=== PATIENT | female | born 1955 | race Caucasian/White ===

== ENCOUNTER 2016-10-07 04:44 | Emergency (ER) | payer OTHER ==
[2016-10-07 05:00] VITALS: BP 129/93; PULSE 79; TEMP 97.8; BMI 35.6
[2016-10-07] MEDS ORDERED: OXYCODONE/APAP 5/325MG COMBO TABLET PO ONE (05:05)
[2016-10-07] MEDS ORDERED: ALBUTEROL SO4 2.5/IPRATROPIUM 0.5 INH SOL 3 ML VIAL.NEB. NEB ONE ×2 (05:05→05:09)
[2016-10-07] MEDS ORDERED: methylPREDNISolone NA SUCC 125 MG/2 ML VIAL IM ONE (05:07)
[2016-10-07] MEDS ORDERED: OXYCODONE/APAP 5/325MG COMBO TABLET ONE (05:09)
[2016-10-07] MEDS ORDERED: methylPREDNISolone NA SUCC 125 MG/2 ML VIAL ONE (05:09)
--- NOTE | 2016-10-07 05:10 | PDOC ---
History of Present Illness - General Chief Complaint: Respiratory Stated Complaint: COUGH History Source: Patient Exam Limitations: No Limitations - History of Present Illness Initial Comments: 10/07/16 05:[address] scan of chest for aneurysm earlier today, then went to the doctor and got a z pack for her cough. Tonight she had a coughing jag that just would not stop and she ended up here in the ED. Timing/Duration: 24 hours Severity: mild Associated Symptoms: denies: denies symptoms Past History - Past Medical History Allergies/Adverse Reactions: Allergies Allergy/AdvReac Type Severity Reaction Status Date / Time No Known Allergies Allergy Verified 12/26/12 01:47 Home Medications: Ambulatory Orders Amlodipine Besylate [Norvasc] 5 mg PO DAILY 12/23/12 Aspirin Coated [Ecotrin -] 81 mg PO DAILY 10/07/16 Azithromycin [Zithromax -] 250 mg PO DAILY 10/07/16 Cholecalciferol (Vitamin D3) [Vitamin D3] 2,000 unit PO BID 10/07/16 Hydrochlorothiazide 25 mg PO DAILY 10/07/16 Naproxen [Naprosyn -] 500 mg PO PRN PRN 10/07/16 [place]-3/Dha/Epa/Fish Oil [[place] 3 500 Softgel] 1,000 mg PO HS 10/07/16 Oxycodone HCl/Acetaminophen [Percocet 10-325 mg Tablet] 1 each PO TID 10/07/16 Sitagliptin Phos/Metformin HCl [Janumet Xr 50-500 mg Tablet] 1 each PO DAILY 01/18 Vitamin E Acetate [Vitamin E] 400 unit PO DAILY 10/07/16 Diabetes: Yes HTN: Yes HIV: Yes Suicide Attempt (Hx): No Other medical history: ANEURYSM - Immunization History Td Vaccination: Yes TDAP Vaccination: Yes Immunization Up to Date: Yes - Psycho/Social/Smoking Cessation Hx Anxiety: No Suicidal Ideation: No Smoking Status: Yes Smoking History: Current every day smoker Years of Tobacco Use: 0 Have you smoked in the past 12 months: Yes Number of Cigarettes Smoked Daily: 35 Cigars Per Day: 0 Information on smoking cessation initiated: Yes 'Breaking Loose' booklet given: 10/07/16 Drug/Substance Use Hx: No Substance Use Type: None Review of Systems - Review of Systems Able to Perform ROS?: Yes Is the patient limited Togolese proficient: No Constitutional: Yes: Symptoms Reported, See HPI HEENTM: No: Symptoms Reported Respiratory: Yes: See HPI Cardiac (ROS): No: Symptoms Reported ABD/GI: No: Symptoms Reported : No: Symptoms Reported Musculoskeletal: No: Symptoms Reported Integumentary: No: Symptoms Reported Neurological: No: Symptoms reported Endocrine: No: Symptoms Reported Hematologic/Lymphatic: No: Symptoms Reported All Other Systems: Reviewed and Negative *Physical Exam - Vital Signs Last Vital Signs Temp Pulse Resp BP Pulse Ox 97.8 F 79 18 129/93 96 10/07/16 04:57 10/07/16 04:57 10/07/16 04:57 10/07/16 04:57 10/07/16 04:57 - Physical Exam Comments: 10/07/16 05:11 high pitched barky cough General Appearance: No: Apparent Distress HEENT: positive: EOMI, URSZULA, Normal ENT Inspection Neck: positive: Supple. negative: Tender Respiratory/Chest: positive: Lungs Clear, Normal Breath Sounds. negative: Chest Tender Cardiovascular: positive: Regular Rhythm, Regular Rate Gastrointestinal/Abdominal: positive: Normal Bowel Sounds, Flat, Soft. negative : Organomegaly, Pulsatile Mass Lymphatic: negative: Adenopathy, Tenderness Musculoskeletal: positive: Normal Inspection Extremity: positive: Normal Inspection Integumentary: positive: Normal Color, Dry, Warm Neurologic: positive: environmental solutions engineer II-XII NML intact, Fully Oriented, Alert, Normal Mood/ Affect Medical Decision Making - Medical Decision Making 10/07/16 05:12 will treat with steroid, albuterol and cough supressant *DC/Admit/Observation/Transfer Diagnosis at time of Disposition: Laryngotracheitis - Discharge Dispostion Disposition: HOME Condition at time of disposition: Good Admit: No - Patient Instructions Additional Instructions: Humidified air everywhere you are, especially in bed. Over hydrate a little too. Return if any problems. Continue the medicine you got earlier from your doctor. Get the prescriptions later today and start them tonight when you go to bed. Aurelio- Dr. Mejia Dawn
== END 2016-10-07 05:38 | disposition home or self-care (01) ==
LOC: FER 04:44
PROC: 3E0F7GC Introduction of Other Therapeutic Substance into Respiratory Tract, Via Natural or Artificial Opening (ICD-10-PCS; principal; 2016-10-07)
PROC: 3E033GC Introduction of Other Therapeutic Substance into Peripheral Vein, Percutaneous Approach (ICD-10-PCS; 2016-10-07)
DX: J04.2 Acute laryngotracheitis (principal); E11.9 Type 2 diabetes mellitus without complications; I10 Essential (primary) hypertension; Z21 Asymptomatic human immunodeficiency virus [HIV] infection status; I71.2 Thoracic aortic aneurysm, without rupture; F17.210 Nicotine dependence, cigarettes, uncomplicated
CPT/HCPCS: 99281-25

== ENCOUNTER 2016-12-02 05:03 | Inpatient (IN) | payer OTHER ==
[2016-11-25 11:35] VITALS: BMI 35.4
[2016-12-02] MEDS ORDERED: HEPARIN NA (PORCINE) 5,000 UNITS/ML 1ML VIAL ONE ×3 (07:32→10:11)
[2016-12-02] MEDS ORDERED: ceFAZolin SODIUM 1 GM VIAL ONE ×2 (07:58→08:38)
[2016-12-02] MEDS ORDERED: PROPOFOL 20 ML ONE ×3 (08:03→11:14)
--- NOTE | 2016-12-02 08:16 | HP ---
History & Physical Update - History History: No Change - Physical Physical: No Change - Assessment Assessment: No Change - Plan Plan: No Change (This is the first time I am meeting the patient. Introduced myself and informed her that I will be assisting Dr. Willett during the procedure.)
[2016-12-02] MEDS ORDERED: MIDAZOLAM HCL 2 MG/2 ML SINGLE DOSE VIAL ONE ×4 (08:33→11:11)
[2016-12-02] MEDS ORDERED: ceFAZolin SODIUM 1 GM VIAL IVPB ONE (08:40)
[2016-12-02] MEDS ORDERED: LIDOCAINE HCL 2% (20ML MULTI-DOSE VIAL) NR ONE ×2 (08:42→08:48)
[2016-12-02] MEDS ORDERED: CEFAZOLIN 1 GM in DEXTROSE 5%-WATER - 50 ML IVPB ONE (09:00)
[2016-12-02] MEDS ORDERED: METOPROLOL TARTRATE 5 MG/5 ML VIAL ONE (09:35)
[2016-12-02] MEDS ORDERED: SODIUM CHLORIDE 0.9% P/F 10 ML VIAL IJ ONE (10:11)
[2016-12-02] MEDS ORDERED: hydrALAZINE HCL 20 MG/ML VIAL ONE (10:26)
[2016-12-02] MEDS ORDERED: OXYCODONE/APAP 5/325MG COMBO TABLET PO PRN (12:14)
--- NOTE | 2016-12-02 12:18 | OP ---
Operative Note - Note: Operative Date: 12/02/16 Pre-Operative Diagnosis: Abdominal aortic aneurysm Operation: Endovascular repair of abdominal aortic aneurysm with unibody graft and 2 docking limbs. Findings: 6.5 cm infrarenal AAA Implants: Endologix AFX stent graft Post-Operative Diagnosis: Same as Pre-op Surgeon: Dorian Willett Manager Credit Risk: Bobby Gomes Anesthesiologist/INSPECTOR BALANCE BRIDGE: Terri Tolbert Anesthesia: Fractional Estimated Blood Loss (mls): 200 Operative Report Dictated: Yes
[2016-12-02] MEDS ORDERED: ONDANSETRON 4 MG/2 ML VIAL IVPUSH PRN (12:22)
--- NOTE | 2016-12-02 12:41 | PROC ---
Procedure Note Procedure: Anesthesiology Arterial Line Insertion Indication: Hemodynamic monitoring intra-op Procedure: In OR, left radial pulse palpated, left wrist prepped with chlorhexidine, sterile gloves used. #20G Arrow arterial catheter inserted x1 via Seldinger technique. No resistance. Good waveform upon transduction of line. Dressing applied to secure catheter. No apparent complications.
--- NOTE | 2016-12-02 12:48 | HP ---
Admitting History and Physical - Admission History of Present Illness: 61 year old female found to have a 6 cm AAA on recent abdominal CT scan. No abdominal pain. No family history of aneurysm disease. History Source: Patient - Past Medical History Cardiovascular: Yes: HTN Endocrine: Yes: Diabetes Mellitus - Smoking History Smoking history: Current every day smoker Have you smoked in the past 12 months: Yes Aproximately how many cigarettes per day: 35 - Alcohol/Substance Use Hx Alcohol Use: Yes (RARE) Home Medications - Allergies Allergies/Adverse Reactions: Allergies Allergy/AdvReac Type Severity Reaction Status Date / Time No Known Drug Allergies Allergy Verified 12/02/16 08:07 - Home Medications Home Medications: Ambulatory Orders Amlodipine Besylate [Norvasc] 5 mg PO DAILY 12/23/12 Aspirin Coated [Ecotrin -] 81 mg PO ASDIR 10/07/16 Cholecalciferol (Vitamin D3) [Vitamin D3] 2,000 unit PO BID 10/07/16 Hydrochlorothiazide 25 mg PO ASDIR 10/07/16 Naproxen [Naprosyn -] 500 mg PO PRN PRN 10/07/16 [place]-3/Dha/Epa/Fish Oil [[place] 3 500 Softgel] 1,000 mg PO HS 10/07/16 Oxycodone HCl/Acetaminophen [Percocet 5-325 mg Tablet] 1 - 2 tab PO Q4H #20 tablet MDD 5 10/07/16 Sitagliptin Phos/Metformin HCl [Janumet Xr 50-500 mg Tablet] 1 each PO DAILY 01/18 Vitamin E Acetate [Vitamin E] 400 unit PO DAILY 10/07/16 Review of Systems - Review of Systems Musculoskeletal: reports: Back Pain Physical Examination Vital Signs: Vital Signs Temperature 98.0 F 12/02/16 08:20 Pulse Rate 78 12/02/16 08:20 Respiratory Rate 20 12/02/16 08:20 Blood Pressure 140/80 12/02/16 08:20 O2 Sat by Pulse Oximetry (%) 96 12/02/16 07:56 Constitutional: Yes: Obese Eyes: Yes: EOM Intact HENT: Yes: Atraumatic Neck: Yes: Supple Cardiovascular: Yes: Regular Rate and Rhythm Respiratory: Yes: Regular Gastrointestinal: Yes: Soft, Abdomen, Obese Peripheral Pulses WNL: Yes Problem List - Problems (1) Abdominal aortic aneurysm (AAA) greater than 39 mm in diameter Assessment/Plan: Infrarenal AAA > 5 cm. Plan endovascular repair with stent graft. Code(s): I71.4 - ABDOMINAL AORTIC ANEURYSM, WITHOUT RUPTURE (2) Diabetes mellitus, controlled Code(s): E11.9 - TYPE 2 DIABETES MELLITUS WITHOUT COMPLICATIONS Qualifiers: Diabetes mellitus type: type 2 Diabetes mellitus complication status: without complication
[2016-12-02] MEDS ORDERED: oxyCODONE HCL 5 MG TABLET PO PRN (12:53)
[2016-12-02] MEDS ORDERED: ACETAMINOPHEN 325 MG TABLET (FP) PO PRN (12:53)
--- NOTE | 2016-12-02 12:57 | SURG ---
Surgery Estate Planning Attorney Note Estate Planning Attorney: Bobby Gomes PA-C Date of Service: 12/02/16 Diagnosis: Abdominal aortic aneurysm Procedure: Endovascular repair of abdominal aortic aneurysm with unibody graft and 2 docking limbs. Findings: 6.5 cm infrarenal AAA Implants: Endologix AFX stent graft I was present for the entirety of the operative procedure. For further detail, please refer to operative report. Visit type - Case Type Case Type: Scheduled Admission - New patient This patient is new to me today: Yes Date on this admission: 12/02/16
[2016-12-02] MEDS ORDERED: ONDANSETRON 4 MG/2 ML VIAL ONE (13:00)
[2016-12-02] MEDS: DEXTROSE 5%-0.45% SALINE 1,000 ML IV SCH ×2 (14:00→14:30)
--- NOTE | 2016-12-02 14:35 | CONSULT ---
Consultation: HISTORY OF PRESENT ILLNESS: Patient is a 61 year old female w/ PMH of HTN, HLD, DM, RISHI, & 1.5ppd smoker who was found to have a 6 cm infrarenal AAA on recent abdominal CT scan. Patient has no family history of aneurysm disease. AAA was found incidentally 3 years ago and has been monitored by Dr Willett. Patient states it has been stable until recently, when she was informed it had grown larger. Surgery was planned & today Dr Willett performed an endovascular repair with unibody stent graft and 2 docking limbs. Patient has some mild nausea & headache post-op , but otherwise states she feels normal. REVIEW OF SYSTEMS: CONSTITUTIONAL: Absent: fever, chills, diaphoresis, generalized weakness, malaise, loss of appetite, weight change HEENT: Absent: rhinorrhea, nasal congestion, throat pain, throat swelling, difficulty swallowing, mouth swelling, ear pain, eye pain, visual changes CARDIOVASCULAR: Absent: chest pain, syncope, palpitations, irregular heart rate, lightheadedness , peripheral edema RESPIRATORY: Absent: cough, shortness of breath, dyspnea with exertion, orthopnea, wheezing, stridor, hemoptysis GASTROINTESTINAL: (+)nausea Absent: abdominal pain, abdominal distension, vomiting, diarrhea, constipation, melena, hematochezia GENITOURINARY: Absent: dysuria, frequency, urgency, hesitancy, hematuria, flank pain, genital pain MUSCULOSKELETAL: Absent: myalgia, arthralgia, joint swelling, back pain, neck pain SKIN: Absent: rash, itching, pallor HEMATOLOGIC/IMMUNOLOGIC: Absent: easy bleeding, easy bruising, lymphadenopathy, frequent infections ENDOCRINE: Absent: unexplained weight gain, unexplained weight loss, heat intolerance, cold intolerance NEUROLOGIC: (+)headache, Absent: focal weakness or paresthesias, dizziness, unsteady gait, seizure, mental status changes, bladder or bowel incontinence PSYCHIATRIC: Absent: anxiety, depression, suicidal or homicidal ideation, hallucinations. PHYSICAL EXAMINATION Vital Signs - 24 hr 12/02/16 12/02/16 07:56 08:20 Temperature 98.0 F Pulse Rate 78 Respiratory 20 Rate Blood Pressure 140/80 O2 Sat by Pulse 96 Oximetry (%) GENERAL: Awake, alert, and fully oriented, in no acute distress. On NC O2 HEENT:Atraumatic, EOMI, PERRLA, Dry membranes, no lymphadenopathy noted LUNGS: Breath sounds equal, clear to auscultation bilaterally. No wheezes, and no crackles. No accessory muscle use. HEART: Regular rate and rhythm, normal S1 and S2 without murmur, rub or gallop. ABDOMEN: Soft, nontender, not distended, normoactive bowel sounds EXTREMITIES: 2+ pulses, warm, well-perfused. No calf tenderness. Trace peripheral edema bilateral LE NEUROLOGICAL: Cranial nerves II-XII intact. Normal speech. Gait not observed post-op PSYCHIATRIC: Cooperative. Good eye contact. Appropriate mood and affect. SKIN: Warm, dry, normal turgor, no rashes or lesions noted. Laboratory Results - last 24 hr 12/02/16 12/02/16 07:40 08:00 POC Glucometer 145 Blood Type A POSITIVE Antibody Screen Negative Crossmatch IS Only See Detail Active Medications Generic Name Dose Route Start Last Admin Trade Name Freq PRN Reason Stop Dose Admin Acetaminophen 650 mg 12/02/16 12:53 Tylenol - PO 12/05/16 12:52 Q4H PRN PAIN 6-10 Amlodipine Besylate 5 mg 12/03/16 10:00 Norvasc - PO DAILY [facility] Aspirin 81 mg 12/02/16 12:15 Ecotrin - PO ASDIR [facility] Cholecalciferol 2,000 unit 12/02/16 22:00 Vitamin D3 - PO BID [facility] Fentanyl 50 mcg 12/02/16 12:22 12/02/16 12:48 Sublimaze Injection - IVPUSH 12/05/16 12:23 25 mcg [id number] PRN Administration PAIN Heparin Sodium (Porcine) 5,000 unit 12/02/16 22:00 Heparin - SQ BID [facility] Hydrochlorothiazide 25 mg 12/02/16 12:15 Hctz - PO ASDIR [facility] Hydromorphone HCl 1 mg 12/02/16 12:13 Dilaudid Injection - IVPB Q3H PRN PAIN LEVEL 1-5 Cefazolin Sodium 1 gm/ 50 mls @ 100 mls/hr 12/03/16 09:00 Dextrose IVPB 12/03/16 09:29 Q8H-IV ONE Ondansetron HCl 4 mg 12/02/16 12:22 12/02/16 13:07 Zofran Injection IVPUSH 12/02/16 18:23 4 mg Q6H PRN Administration NAUSEA AND/OR VOMITING Oxycodone HCl 10 mg 12/02/16 12:53 Roxicodone - PO Q4H PRN PAIN 6-10 ASSESSMENT/PLAN: 61 year old female w/ PMH of HTN, HLD, DM, RISHI, & 1.5ppd smoker who was found to have a 6 cm infrarenal AAA on recent abdominal CT scan. S/P endovascular graft by Dr Willett today. #Abdominal Aortic Aneurysm, infrarenal -s/p endovascular repair with unibody stent graft -Dialudid pain management -Clear liquid diet, may advance tomorrow AM -Zofran for nausea -2gm Ancef given in OR, will give another 1gram tomorrow morning -IVF D5-1/2NS @60cc/hr, as per surgery #Hypertension -continue Norvasc 5mg, HCTZ 25mg -continue ASA 81mg #Diabetes Mellitus -ISS -FSBG ACHS Prophylaxis/FEN -Heparin -Clear liquid diet, IVF D5-1/2NS @60cc/hr, Vit D3 Dispo: We will continue to follow the patient. Thank you for this consultative opportunity. Visit type - Emergency Visit Emergency Visit: Yes ED Registration Date: 12/02/16 Care time: The patient presented to the Emergency Department on the above date and was hospitalized for further evaluation of their emergent condition. - New Patient This patient is new to me today: Yes Date on this admission: 12/02/16 - Critical Care Critical Care patient: Yes Total Critical Care Time (in minutes): 50 Critical Care Statement: The care of this patient involved high complexity decision making to prevent further life threatening deterioration of the patient 's condition and/or to evalute & treat vital organ system(s) failure or risk of failure.
[2016-12-02] MEDS: HYDROmorphone HCL CARPU-JECT 1 MG/1 ML DISP.SYRIN IVPB PRN ×2 (15:16→20:26)
[2016-12-02] MEDS ORDERED: HYDROmorphone HCL CARPU-JECT 1 MG/1 ML DISP.SYRIN IVPUSH ONE (17:00)
[2016-12-02] MEDS: INSULIN SLIDING SCALE (NOVOLOG) 1 VIAL SQ SCH (17:22)
[2016-12-02] MEDS ORDERED: ONDANSETRON 4 MG/2 ML VIAL IVPUSH ONE (17:34)
[2016-12-02 18:38] LABS: MCH 29.5 pg (25.7-33.7); MCHC 33.4 g/dl (32.0-36.0); MEAN CELL VOLUME 88.2 fl (80-96); PLATELET COUNT 183 K/MM3 (134-434); WHITE BLOOD COUNT 14.7 K/mm3 (4.0-10.0)
[2016-12-02 19:16] LABS: CALCIUM 8.7 mg/dL (8.5-10.1)
[2016-12-02] MEDS ORDERED: METOCLOPRAMIDE HCL INJECTION 10 MG/2 ML VIAL IVPUSH ONE (20:13)
--- NOTE | 2016-12-02 20:14 | CONSULT ---
Consult Consult Specialty:: Pulm/CC - History of Present Illness History of Present Illness: Pt is a 61yr old woman with PMhx of RISHI (current smoker) HTN, HLD, DM and AAA ( infrarenal), recently enlarged to 6cm. Pt now s/p endovascular repair with unibody graft (bilateral femoral incisions, ebl 200mL). Upon assessment pt denies chest pain/headache/sob and endorses nausea with dry heaving and 12/10 abdominal pain. 154/84, 98%, 79hr (sinus on tele). - History Source History Provided By: Patient, Medical Record Limitations to Obtaining History: Clinical Condition - Past Medical History Cardio/Vascular: Yes: HTN Endocrine: Yes: Diabetes Mellitus - Alcohol/Substance Use Hx Alcohol Use: Yes (RARE) - Smoking History Smoking history: Current every day smoker Have you smoked in the past 12 months: Yes Aproximately how many cigarettes per day: 35 Home Medications - Allergies Allergies/Adverse Reactions: Allergies Allergy/AdvReac Type Severity Reaction Status Date / Time No Known Drug Allergies Allergy Verified 12/02/16 08:07 - Home Medications Home Medications: Ambulatory Orders Amlodipine Besylate [Norvasc] 5 mg PO DAILY 12/23/12 Aspirin Coated [Ecotrin -] 81 mg PO ASDIR 10/07/16 Cholecalciferol (Vitamin D3) [Vitamin D3] 2,000 unit PO BID 10/07/16 Hydrochlorothiazide 25 mg PO ASDIR 10/07/16 Naproxen [Naprosyn -] 500 mg PO PRN PRN 10/07/16 [place]-3/Dha/Epa/Fish Oil [[place] 3 500 Softgel] 1,000 mg PO HS 10/07/16 Oxycodone HCl/Acetaminophen [Percocet 5-325 mg Tablet] 1 - 2 tab PO Q4H #20 tablet MDD 5 10/07/16 Sitagliptin Phos/Metformin HCl [Janumet Xr 50-500 mg Tablet] 1 each PO DAILY 01/18 Vitamin E Acetate [Vitamin E] 400 unit PO DAILY 10/07/16 Review of Systems Unable to obtain ROS, reason: elda due to pain/nausea Physical Exam Vital Signs: Vital Signs Period Temp Pulse Resp BP Sys/Taylor Pulse Ox Last 24 Hr 97.5 F-98.6 F 60-78 12-20 17-144/63-83 95-100 Intake & Output 11/29/16 11/30/16 12/01/16 12/02/16 23:59 23:59 23:59 23:59 Intake Total 2019 Output Total 1950 Balance 70 Constitutional: Yes: Well Nourished, Mild Distress Eyes: Yes: WNL, Other (pupillary response consistent with opioids for pain) HENT: Yes: WNL Neck: Yes: WNL Cardiovascular: Yes: S1, S2, Other (sinus on tele) Respiratory: Yes: On Nasal O2, Other (no adventitious breath sounds appreciated) . No: Rhonchi, SOB Gastrointestinal: Yes: Hypoactive Bowel Sounds, Tenderness, Other (nausea) ...Rectal Exam: Yes: Deferred Renal/: Yes: [place] Present (yellow output) Extremities: Yes: WNL Edema: Yes Edema: LLE: Trace, RLE: Trace Peripheral Pulses WNL: Yes (+1 bilateral pedal pulses) Integumentary: Yes: Other (bilateral femoral incision) Wound/Incision: Yes: Open to air, Reddened Neurological: Yes: Alert, Oriented. No: Facial Droop Labs: Abnormal Lab Results 12/02/16 12/02/16 12/02/16 07:40 18:00 18:00 WBC 14.7 H D Random Glucose 121 H Crossmatch IS Only See Detail Assessment/Plan Pt is a 61yr old woman with PMhx of RISHI (current smoker) HTN, HLD, DM and AAA ( infrarenal), recently enlarged to 6cm. Pt now s/p endovascular repair with unibody graft. Pulm: -O2 support prn for sat >94% -Incentive spirometer -Nebulizers prn -Smoking cessation counseling -Nicotine patch prn ID: -f/u cultures -Antibiotics given in OR, will continue overnight, continue as clinically warranted Surgery -Dr Willett following -IVF/wound/surgical care per surgery Renal -Replete electrolytes prn -I/Os Cardio -BP control Neuro -Pain management Endo -BGM -Glycemic control Prophylactic -OOB as able -DVT -Antiemetics prn
[2016-12-02 20:54] LABS: MAGNESIUM 2.2 mg/dL (1.8-2.4); PHOSPHOROUS 4.1 mg/dL (2.5-4.9)
[2016-12-02] MEDS: CHOLECALCIFEROL (VITAMIN D3) 1,000 UNIT TABLET (FP) PO SCH (21:17)
[2016-12-02] MEDS: HEPARIN NA (PORCINE) 5,000 UNITS/ML 1ML VIAL SQ SCH (21:17)
[2016-12-02] MEDS ORDERED: CEFAZOLIN (PRE-DOCKED) 50 ML IVPB ONE (21:19)
[2016-12-02] MEDS ORDERED: PATIENT'S OWN MEDICATION (NON-FORMULARY) (Omega-3/Dha/Epa/Fish Oil [Omega 3 500 Softgel] 1 PO SCH (22:00)
[2016-12-03] MEDS: HYDROmorphone HCL CARPU-JECT 1 MG/1 ML DISP.SYRIN IVPB PRN ×5 (00:10→23:54)
[2016-12-03 05:35] LABS: MCH 29.6 pg (25.7-33.7); MCHC 33.8 g/dl (32.0-36.0); MEAN CELL VOLUME 87.5 fl (80-96); PLATELET COUNT 185 K/MM3 (134-434); RDW 13.8 % (11.6-15.6); WHITE BLOOD COUNT 15.5 K/mm3 (4.0-10.0)
[2016-12-03] MEDS ORDERED: CEFAZOLIN (PRE-DOCKED) 50 ML IVPB ONE ×2 (06:00→09:00)
[2016-12-03] MEDS: INSULIN SLIDING SCALE (NOVOLOG) 1 VIAL SQ SCH ×3 (06:10→15:42)
[2016-12-03 06:22] LABS: ALBUMIN 3.6 g/dl (3.4-5.0); BILIRUBIN,TOTAL 0.5 mg/dL (0.2-1.0); CALCIUM 8.4 mg/dL (8.5-10.1); CREATININE 1.1 mg/dL (0.55-1.02); MAGNESIUM 2.1 mg/dL (1.8-2.4); PHOSPHOROUS 4.2 mg/dL (2.5-4.9); TOT PROT 6.6 g/dl (6.4-8.2)
[2016-12-03 06:29] LABS: TROPONIN I < 0.02 ng/ml (0.00-0.05)
--- NOTE | 2016-12-03 08:15 | PN ---
Progress Note (short form) - Note Progress Note: POD 1 C/o back pain VSS Abd soft Groins dry, no swelling Feet warm, pulses intact Labs WNL. WBC 15 K Stable, s/p EVAR OOB Regular diet Problem List - Problems (1) Abdominal aortic aneurysm (AAA) greater than 39 mm in diameter Code(s): I71.4 - ABDOMINAL AORTIC ANEURYSM, WITHOUT RUPTURE (2) Diabetes mellitus, controlled Code(s): E11.9 - TYPE 2 DIABETES MELLITUS WITHOUT COMPLICATIONS Qualifiers: Diabetes mellitus type: type 2 Diabetes mellitus complication status: without complication
[2016-12-03] MEDS ORDERED: PT OWN MED DRAWER 7, Y5N ONE (09:29)
[2016-12-03] MEDS: HEPARIN NA (PORCINE) 5,000 UNITS/ML 1ML VIAL SQ SCH ×2 (09:31→21:13)
[2016-12-03] MEDS: CHOLECALCIFEROL (VITAMIN D3) 1,000 UNIT TABLET (FP) PO SCH ×2 (09:38→21:16)
--- NOTE | 2016-12-03 09:38 | PN ---
Physical Exam: SUBJECTIVE: Patient seen and examined at bedside in ICU. Afebrile overnight with stable BP & HR. States she has some mild diffuse abdominal pain, but improved overnight. Mild nausea improved overnight. Seen by Dr Willett this morning and is doing well post-op. OBJECTIVE: Vital Signs Period Temp Pulse Resp BP Sys/Taylor Pulse Ox Last 24 Hr 97.5 F-98.9 F 60-82 12-20 17-169/63-91 95-100 GENERAL: Awake, alert, and fully oriented, in no acute distress. On NC O2 HEENT:Atraumatic, EOMI, PERRLA, moist membranes, no lymphadenopathy noted LUNGS: Breath sounds equal, clear to auscultation bilaterally. No wheezes, and no crackles. No accessory muscle use. HEART: Regular rate and rhythm, normal S1 and S2 without murmur, rub or gallop. ABDOMEN: Soft, nontender, not distended, normoactive bowel sounds EXTREMITIES: 2+ pulses, warm, well-perfused. No calf tenderness. Trace peripheral edema bilateral LE. Clean dry bilateral transverse groin incision sites NEUROLOGICAL: Cranial nerves II-XII intact. Normal speech. Gait not observed post-op PSYCHIATRIC: Cooperative. Good eye contact. Appropriate mood and affect. SKIN: Warm, dry, normal turgor, no rashes or lesions noted. Laboratory Results - last 24 hr 12/02/16 12/02/16 12/02/16 16:46 18:00 18:00 WBC 14.7 H D RBC 4.46 Hgb 13.1 D Hct 39.4 MCV 88.2 MCHC 33.4 RDW 14.0 Plt Count 183 MPV 8.0 Sodium 140 Potassium 3.9 Chloride 103 Carbon Dioxide 29 Anion Gap 8 BUN 14 Creatinine 1.0 D Creat Clearance w eGFR POC Glucometer 128.35772 Random Glucose 121 H Calcium 8.7 Phosphorus Magnesium Total Bilirubin AST ALT Alkaline Phosphatase Creatine Kinase Troponin I Total Protein Albumin 12/02/16 12/03/16 12/03/16 18:00 05:00 05:00 WBC 15.5 H RBC 4.47 Hgb 13.3 Hct 39.2 MCV 87.5 MCHC 33.8 RDW 13.8 Plt Count 185 MPV 8.0 Sodium 135 L Potassium 3.9 Chloride 98 Carbon Dioxide 27 Anion Gap 10 BUN 13 Creatinine 1.1 H Creat Clearance w eGFR 50.33 POC Glucometer Random Glucose 141 H Calcium 8.4 L Phosphorus 4.1 4.2 Magnesium 2.2 2.1 Total Bilirubin 0.5 AST 42 H D ALT 37 D Alkaline Phosphatase 64 Creatine Kinase Troponin I Total Protein 6.6 Albumin 3.6 12/03/16 05:00 WBC RBC Hgb Hct MCV MCHC RDW Plt Count MPV Sodium Potassium Chloride Carbon Dioxide Anion Gap BUN Creatinine Creat Clearance w eGFR POC Glucometer Random Glucose Calcium Phosphorus Magnesium Total Bilirubin AST ALT Alkaline Phosphatase Creatine Kinase 58 Troponin I < 0.02 Total Protein Albumin Active Medications Generic Name Dose Route Start Last Admin Trade Name Freq PRN Reason Stop Dose Admin Acetaminophen 650 mg 12/02/16 12:53 Tylenol - PO 12/05/16 12:52 Q4H PRN PAIN 6-10 Amlodipine Besylate 5 mg 12/03/16 10:00 Norvasc - PO DAILY [facility] Aspirin 81 mg 12/03/16 10:00 Ecotrin - PO DAILY [facility] Cholecalciferol 2,000 unit 12/02/16 22:00 12/02/16 21:17 Vitamin D3 - PO 2,000 unit BID [facility] Administration Fentanyl 50 mcg 12/02/16 12:22 12/02/16 12:48 Sublimaze Injection - IVPUSH 12/05/16 12:23 25 mcg [id number] PRN Administration PAIN Heparin Sodium (Porcine) 5,000 unit 12/02/16 22:00 12/02/16 21:17 Heparin - SQ 5,000 unit BID [facility] Administration Hydrochlorothiazide 25 mg 12/03/16 10:00 Hctz - PO DAILY [facility] Hydromorphone HCl 1 mg 12/02/16 12:13 12/03/16 08:00 Dilaudid Injection - IVPB 1 mg Q3H PRN Administration PAIN LEVEL 1-5 Dextrose/Sodium Chloride 1,000 mls @ 60 mls/hr 12/02/16 13:45 12/02/16 14:30 D5-1/2ns - IV 60 mls/hr ASDIR [facility] Administration Insulin Aspart 1 vial 12/02/16 16:30 12/03/16 06:10 Novolog Vial Sliding Scale - SQ Not Given TIDAC [facility] Protocol Oxycodone HCl 10 mg 12/02/16 12:53 Roxicodone - PO Q4H PRN PAIN 6-10 ASSESSMENT/PLAN: 61 year old female w/ PMH of HTN, HLD, DM, RISHI, & 1.5ppd smoker who was found to have a 6 cm infrarenal AAA on recent abdominal CT scan. S/P endovascular graft by Dr Willett on 12/02. #Infrarenal Abdominal Aortic Aneurysm, POD #1 -s/p endovascular repair with unibody stent graft -Advanced to PO diabetic diet & tolerating well thus far -Zofran for nausea -Ancef given this AM -Dilaudid pain management -switched IVF to NS @60ml/hr for gentle hydration #Hypertension -continue Norvasc 5mg, HCTZ 25mg, ASA 81mg #Diabetes Mellitus -ISS -FSBG ACHS Prophylaxis/FEN -Heparin -PO Diabetic diet, off IVF, Vit D3 Dispo: stable for transfer to floors today Visit type - Emergency Visit Emergency Visit: Yes ED Registration Date: 12/02/16 Care time: The patient presented to the Emergency Department on the above date and was hospitalized for further evaluation of their emergent condition. - New Patient This patient is new to me today: No - Critical Care Critical Care patient: Yes Total Critical Care Time (in minutes): 45 Critical Care Statement: The care of this patient involved high complexity decision making to prevent further life threatening deterioration of the patient 's condition and/or to evalute & treat vital organ system(s) failure or risk of failure.
[2016-12-03] MEDS ORDERED: amLODIPine BESYLATE 5 MG TABLET (FP) PO SCH (10:00)
[2016-12-03] MEDS ORDERED: ASPIRIN COATED 81 MG TABLET.EC PO SCH (10:00)
[2016-12-03] MEDS ORDERED: HYDROCHLOROTHIAZIDE 25 MG TABLET (FP) PO SCH (10:00)
[2016-12-03] MEDS ORDERED: SODIUM CHLORIDE 1,000 ML IV SCH ×2 (10:00)
--- NOTE | 2016-12-03 10:56 | CONSULT ---
Consult Consult Specialty:: INTERNAL MEDICINE Referred by:: DR METCALF Reason for Consultation:: MEDICAL MANAGEMENT - History of Present Illness Chief Complaint: AAA REPAIR History of Present Illness: 61 yrs old female admitted electively for abdominal aortic aneurysm repair. I know this patient from the office. She has 6 cm AAA and underwent surgery yesterday. Patient examined by me in the ICU Feels well Has some back pain I am consulted today for medical management - History Source History Provided By: Patient Limitations to Obtaining History: No Limitations - Past Medical History Cardio/Vascular: Yes: HTN, Hyperlipdemia Pulmonary: Yes: COPD Gastrointestinal: Yes: GERD Musculoskeletal: Yes: Chronic low back pain Rheumatology: Yes: Other (osteoarthritis) Endocrine: Yes: Diabetes Mellitus - Alcohol/Substance Use Hx Alcohol Use: Yes (RARE) - Smoking History Smoking history: Current every day smoker Have you smoked in the past 12 months: Yes Aproximately how many cigarettes per day: 35 Home Medications - Allergies Allergies/Adverse Reactions: Allergies Allergy/AdvReac Type Severity Reaction Status Date / Time No Known Drug Allergies Allergy Verified 12/02/16 08:07 - Home Medications Home Medications: Ambulatory Orders Amlodipine Besylate [Norvasc] 5 mg PO DAILY 12/23/12 Aspirin Coated [Ecotrin -] 81 mg PO ASDIR 10/07/16 Cholecalciferol (Vitamin D3) [Vitamin D3] 2,000 unit PO BID 10/07/16 Hydrochlorothiazide 25 mg PO ASDIR 10/07/16 Naproxen [Naprosyn -] 500 mg PO PRN PRN 10/07/16 [place]-3/Dha/Epa/Fish Oil [[place] 3 500 Softgel] 1,000 mg PO HS 10/07/16 Oxycodone HCl/Acetaminophen [Percocet 5-325 mg Tablet] 1 - 2 tab PO Q4H #20 tablet MDD 5 10/07/16 Sitagliptin Phos/Metformin HCl [Janumet Xr 50-500 mg Tablet] 1 each PO DAILY 01/18 Vitamin E Acetate [Vitamin E] 400 unit PO DAILY 10/07/16 Review of Systems - Review of Systems Constitutional: denies: Chills, Fever Cardiovascular: denies: Chest Pain, Palpitations Respiratory: denies: Cough, SOB Gastrointestinal: denies: Abdominal Pain, Nausea Musculoskeletal: reports: Back Pain Physical Exam Vital Signs: Vital Signs Temperature 98.6 F 12/03/16 09:50 Pulse Rate 79 12/03/16 09:50 Respiratory Rate 18 12/03/16 09:50 Blood Pressure 161/90 12/03/16 09:50 O2 Sat by Pulse Oximetry (%) 100 12/02/16 20:53 Constitutional: Yes: No Distress, Calm Cardiovascular: Yes: Regular Rate and Rhythm Respiratory: Yes: Diminished Gastrointestinal: Yes: Normal Bowel Sounds, Soft, Abdomen, Obese, Other (clean surgical wound noted---left inguinal area). No: Distention, Tenderness Edema: No Neurological: Yes: WNL, Alert ...Motor Strength: WNL Psychiatric: Yes: WNL Labs: CBC, BMP 12/03/16 05:00 12/03/16 05:00 Imaging - Results EKG: Image Reviewed Problem List - Problems (1) Abdominal aortic aneurysm (AAA) greater than 39 mm in diameter Code(s): I71.4 - ABDOMINAL AORTIC ANEURYSM, WITHOUT RUPTURE (2) Diabetes mellitus, controlled Code(s): E11.9 - TYPE 2 DIABETES MELLITUS WITHOUT COMPLICATIONS Qualifiers: Diabetes mellitus type: type 2 Diabetes mellitus complication status: without complication (3) Hypertension Code(s): I10 - ESSENTIAL (PRIMARY) HYPERTENSION Qualifiers: Hypertension type: essential hypertension Qualified Code(s): I10 - Essential (primary) hypertension (4) Back pain Code(s): M54.9 - DORSALGIA, UNSPECIFIED Qualifiers: Back pain location: low back pain Chronicity: chronic (5) Nicotine dependence Code(s): F17.200 - NICOTINE DEPENDENCE, UNSPECIFIED, UNCOMPLICATED Qualifiers : Nicotine product type: cigarettes Substance use status: uncomplicated Qualified Code(s): F17.210 - Nicotine dependence, cigarettes, uncomplicated Assessment/Plan plan postoperative cardiac enzymes are negative --telemetry unremarkable DC Zamora--check output nebulizer treatment as needed Pain control with oxycodone Out of bed DVT prophylaxis --continue with medications for blood pressurecontrolled Incentive spirometer --continue IV fluids for 24 hours only
[2016-12-03] MEDS: NICOTINE 21 MG/24 HOURS TOPICAL PATCH TD SCH (11:09)
--- NOTE | 2016-12-03 12:37 | PN ---
Teaching Attending Note Name of Resident: Edilberto Leonard ATTENDING PHYSICIAN STATEMENT I saw and evaluated the patient. I reviewed the resident's note and discussed the case with the resident. I agree with the resident's findings and plan as documented. SUBJECTIVE: Patiengt seen and examined in the ICU. Awake and alert. (+) nausea and dry heaving. (+) right sided discomfort that seems musculoskeletal in nature. No CP or SOB. Minimal discomfort at the incision sites. H&H stable. Intake & Output 11/30/16 12/01/16 12/02/16 12/03/16 23:59 23:59 23:59 23:59 Intake Total 2170 1010 Output Total 2850 500 Balance -680 510 Weight 198 lb 6.656 oz Last Vital Signs Temp Pulse Resp BP Pulse Ox 98.6 F 79 18 161/90 100 12/03/16 09:50 12/03/16 09:50 12/03/16 09:50 12/03/16 09:50 12/03/16 09:00 Active Medications Acetaminophen (Tylenol -) 650 mg PO Q4H PRN PRN Reason: PAIN 6-10 Stop: 12/05/16 12:52 Last Admin: 12/03/16 11:08 Dose: 650 mg Amlodipine Besylate (Norvasc -) 5 mg PO DAILY [facility] Last Admin: 12/03/16 09:31 Dose: 5 mg Aspirin (Ecotrin -) 81 mg PO DAILY [facility] Last Admin: 12/03/16 09:31 Dose: 81 mg Cholecalciferol (Vitamin D3 -) 2,000 unit PO BID [facility] Last Admin: 12/03/16 09:38 Dose: 2,000 unit Fentanyl (Sublimaze Injection -) 50 mcg IVPUSH Q1PNONSVE PRN PRN Reason: PAIN Stop: 12/05/16 12:23 Last Admin: 12/02/16 12:48 Dose: 25 mcg Heparin Sodium (Porcine) (Heparin -) 5,000 unit SQ BID [facility] Last Admin: 12/03/16 09:31 Dose: 5,000 unit Hydrochlorothiazide (Hctz -) 25 mg PO DAILY [facility] Last Admin: 12/03/16 09:32 Dose: 25 mg Hydromorphone HCl (Dilaudid Injection -) 1 mg IVPB Q3H PRN PRN Reason: PAIN LEVEL 1-5 Last Admin: 12/03/16 08:00 Dose: 1 mg Sodium Chloride (Normal Saline -) 1,000 mls @ 60 mls/hr IV ASDIR RENAN Stop: 12/04/16 02:39 Last Admin: 12/03/16 10:34 Dose: 60 mls/hr Insulin Aspart (Novolog Vial Sliding Scale -) 1 vial SQ TIDAC RENAN PRN Reason: Protocol Last Admin: 12/03/16 11:39 Dose: Not Given Nicotine (Nicoderm Patch -) 21 mg TD DAILY [facility] Last Admin: 12/03/16 11:09 Dose: 21 mg Ondansetron HCl (Zofran Injection) 4 mg IVPUSH Q4H PRN PRN Reason: NAUSEA AND/OR VOMITING Stop: 12/03/16 23:06 Oxycodone HCl (Roxicodone -) 10 mg PO Q4H PRN PRN Reason: PAIN 6-10 Last Admin: 12/03/16 11:08 Dose: 10 mg Constitutional: Yes: Uncomfortable due to nausea and pain Eyes: Yes: WNL, (-) Pallor HENT: Yes: WNL Neck: Yes: WNL Cardiovascular: Yes: S1, S2, Other (sinus on tele) Respiratory: Yes: On Nasal O2, Scattered rhonchi Gastrointestinal: Yes: Hypoactive Bowel Sounds, Tenderness, Other (nausea) ...Rectal Exam: Yes: Deferred Renal/: Yes: Zamora Present (yellow output) Extremities: Yes: WNL Edema: Yes Edema: LLE: Trace, RLE: Trace Peripheral Pulses WNL: Yes (+1 bilateral pedal pulses) Integumentary: Yes: Other (bilateral femoral incision) Wound/Incision: Yes: Open to air, Reddened Neurological: Yes: Alert, Oriented. No: Facial Droop Labs: Laboratory Results - last 24 hr 12/02/16 12/02/16 12/02/16 16:46 18:00 18:00 WBC 14.7 H D RBC 4.46 Hgb 13.1 D Hct 39.4 MCV 88.2 MCHC 33.4 RDW 14.0 Plt Count 183 MPV 8.0 Sodium 140 Potassium 3.9 Chloride 103 Carbon Dioxide 29 Anion Gap 8 BUN 14 Creatinine 1.0 D Creat Clearance w eGFR POC Glucometer 128.42670 Random Glucose 121 H Calcium 8.7 Phosphorus Magnesium Total Bilirubin AST ALT Alkaline Phosphatase Creatine Kinase Troponin I Total Protein Albumin 12/02/16 12/03/16 12/03/16 18:00 05:00 05:00 WBC 15.5 H RBC 4.47 Hgb 13.3 Hct 39.2 MCV 87.5 MCHC 33.8 RDW 13.8 Plt Count 185 MPV 8.0 Sodium 135 L Potassium 3.9 Chloride 98 Carbon Dioxide 27 Anion Gap 10 BUN 13 Creatinine 1.1 H Creat Clearance w eGFR 50.33 POC Glucometer Random Glucose 141 H Calcium 8.4 L Phosphorus 4.1 4.2 Magnesium 2.2 2.1 Total Bilirubin 0.5 AST 42 H D ALT 37 D Alkaline Phosphatase 64 Creatine Kinase Troponin I Total Protein 6.6 Albumin 3.6 12/03/16 12/03/16 05:00 05:21 WBC RBC Hgb Hct MCV MCHC RDW Plt Count MPV Sodium Potassium Chloride Carbon Dioxide Anion Gap BUN Creatinine Creat Clearance w eGFR POC Glucometer 134.00476 Random Glucose Calcium Phosphorus Magnesium Total Bilirubin AST ALT Alkaline Phosphatase Creatine Kinase 58 Troponin I < 0.02 Total Protein Albumin Assessment/Plan S/P Endovascular repair of an enlarging Infrarenal AAA RISHI Active smoker HTN HLD DM PLAN: Zofran Pain control O2 as needed Incentive spirometer BD TX PRN BP monitoring VTE prophylaxis Dr Boyd CCTime 35"
[2016-12-03] MEDS: ONDANSETRON 4 MG/2 ML VIAL IVPUSH PRN ×2 (12:50→16:08)
--- NOTE | 2016-12-03 14:37 | PN ---
Progress Note (short form) - Note Progress Note: Anesthesia POD#1 Endovascular AAA under MAC Patient did in the ICU transferred to the floor. No N/V ,no pain related to the surgery however c/o backache due lying in bed. Taking oral medications for the pain. A/P No complications related to anesthesia seen. Grace Cat.
[2016-12-03] MEDS: LIDOCAINE 5% TOPICAL PATCH TP SCH (20:27)
[2016-12-03] MEDS: oxyCODONE HCL 5 MG TABLET PO PRN (20:28)
[2016-12-03] MEDS: ACETAMINOPHEN 325 MG TABLET (FP) PO PRN (20:29)
[2016-12-04] MEDS: HYDROmorphone HCL CARPU-JECT 1 MG/1 ML DISP.SYRIN IVPB PRN (05:10)
[2016-12-04] MEDS: INSULIN SLIDING SCALE (NOVOLOG) 1 VIAL SQ SCH ×3 (06:21→16:48)
--- NOTE | 2016-12-04 07:52 | OP ---
DATE OF OPERATION: 12/02/2016 PROCEDURE: Endovascular repair of abdominal aortic aneurysm with Unibody graft and 2 docking limbs. Percutaneous. PREOPERATIVE DIAGNOSIS: Infrarenal abdominal aortic aneurysm POSTOPERATVE DIAGNOSIS: Infrarenal abdominal aortic aneurysm SURGEON: Dorian Willett MD FRAMING MACHINE TENDER: L[address] [place] ANESTHESIA: [facility] ANESTHESIOLOGIST: MD Didi OPERATIVE FINDINGS: There was a 6.5-cm abdominal aortic aneurysm with angulated proximal neck. OPERATIVE PROCEDURE: Following routine patient identification, intravenous sedation was established. The abdomen and both groins were prepped with ChloraPrep. Duplex imaging was used to identify both common femoral arteries. They were patent, free of significant atherosclerotic disease. The left common femoral artery was visualized above its bifurcation, and Xylocaine was infiltrated in the subcutaneous tissues over the artery. The artery was then cannulated with a micropuncture needle under direct ultrasound guidance. A wire was passed proximally into the iliac artery, and the needle was exchanged for a 5-[place]izen [place] catheter. A Quintero wire was then advanced through the catheter into the iliac artery, and a 7-Citizen [place] sheath placed into the vessel. The right common femoral artery was then cannulated in a similar fashion using Duplex imaging to ensure puncture of both the femoral bifurcations. A 6-Citizen [place] sheath was then placed over the wire. A Perclose device was then placed but not tightened at the 10 o'clock position, and a second Perclose placed at the 2 o'clock position. The sutures were secured but not tightened. An 8-Citizen [place] sheath was advanced into the vessel of the wire. Using an angled-tip Glidewire and Berenstein catheter, the wire was advanced through the abdominal aortic aneurysm into the thoracic aorta. The catheter was advanced to the level of the aortic arch, and then a Lunderquist wire was exchanged and left in place. The wire was marked on the table to ensure that it did not migrate. A wire and catheter were then advanced through the left femoral sheath into the suprarenal aorta. A marking pigtail catheter was advanced over the wire. Aortography was then performed with Visipaque using a power injector to identify the origin of both renal arteries and measured the length of the aneurysm. The sheath for the Endologix stent graft was then prepared. It was exchanged over the wire in the right groin and advanced into the abdominal aortic aneurysm. A snare device was then exchanged over the wire from the left groin and positioned at the aortic bifurcation. The AFX distal stent graft was prepped and passed over the wire. The contralateral wire was advanced through the sheath. Attempts to grab it with the snare at the level of the aortic bifurcation, were unsuccessful. Therefore, the snare was repositioned in the suprarenal aorta and the sheath advanced to this level and the wire re-introduced, and was successfully snared. The snared wire was pulled down through the left femoral sheath, and then the graft was advanced up through the sheath and deployed into the abdominal aorta, and then pulled distally until the graft was sitting on top of the aortic bifurcation with gentle traction on both sides. The remainder of the aortic graft was then deployed. The pigtail catheter was re-introduced up into the suprarenal aorta through the left side, and repeat imaging with magnified views obtained of the renal arteries. The proximal stent graft was then advanced through the right femoral sheath. The stent graft was deployed but landed approximately 1 cm distal to the infrarenal landing zone. A second proximal cuff was then prepped and positioned correctly just at the origin of the lowest renal artery on the right side, and was deployed without complication. Completion imaging revealed good flow through the stent graft with no evidence of endoleak. Wires were removed. The right femoral sheath was then removed with tightening of the previously placed Perclose devices to seal the arteriotomy. Gentle pressure was applied to control any residual bleeding. Attempt to close the left femoral arteriotomy with Perclose was unsuccessful due to difficulty passing the device up through the aortic stent graft, so the wire was replaced and the StarClose device used to seal the arteriotomy without complication. Sterile dressings were applied. Patient was taken to the recovery room in stable condition. Mathew [id number]
[2016-12-04 08:03] LABS: BASOPHIL 0.4 % (0-2.0); EOSINOPHIL 0.1 % (0-4.5); MCH 29.8 pg (25.7-33.7); MCHC 34.5 g/dl (32.0-36.0); MEAN CELL VOLUME 86.3 fl (80-96); NEUTROPHILS 81.7 % (42.8-82.8); PLATELET COUNT 153 K/MM3 (134-434); RDW 13.9 % (11.6-15.6); WHITE BLOOD COUNT 19.5 K/mm3 (4.0-10.0)
[2016-12-04 08:13] LABS: CALCIUM 8.4 mg/dL (8.5-10.1)
[2016-12-04 08:17] LABS: ALBUMIN 3.3 g/dl (3.4-5.0); CREATININE 1.2 mg/dL (0.55-1.02); TOT PROT 6.3 g/dl (6.4-8.2)
--- NOTE | 2016-12-04 08:31 | PN ---
Progress Note (short form) - Note Progress Note: POD 2 Complains of lower back pain, right side Coughing up sputum Afebrile Abd soft Ext warm, pulses intact Labs Pending Imp: S/p EVAR. Chronic back pain. Plan CXR Increase activity. Problem List - Problems (1) Abdominal aortic aneurysm (AAA) greater than 39 mm in diameter Code(s): I71.4 - ABDOMINAL AORTIC ANEURYSM, WITHOUT RUPTURE (2) Diabetes mellitus, controlled Code(s): E11.9 - TYPE 2 DIABETES MELLITUS WITHOUT COMPLICATIONS Qualifiers: Diabetes mellitus type: type 2 Diabetes mellitus complication status: without complication
[2016-12-04] MEDS: HYDROCHLOROTHIAZIDE 25 MG TABLET (FP) PO SCH (09:55)
[2016-12-04] MEDS: ASPIRIN COATED 81 MG TABLET.EC PO SCH (09:55)
[2016-12-04] MEDS: LIDOCAINE 5% TOPICAL PATCH TP SCH (09:56)
[2016-12-04] MEDS: CHOLECALCIFEROL (VITAMIN D3) 1,000 UNIT TABLET (FP) PO SCH ×2 (09:56→22:49)
[2016-12-04] MEDS: NICOTINE 21 MG/24 HOURS TOPICAL PATCH TD SCH (09:56)
[2016-12-04] MEDS: HEPARIN NA (PORCINE) 5,000 UNITS/ML 1ML VIAL SQ SCH ×2 (09:56→22:49)
[2016-12-04] MEDS: amLODIPine BESYLATE 5 MG TABLET (FP) PO SCH (09:56)
[2016-12-04] MEDS: oxyCODONE HCL 5 MG TABLET PO PRN ×3 (09:57→20:05)
[2016-12-04] MEDS: ACETAMINOPHEN 325 MG TABLET (FP) PO PRN ×3 (09:57→20:06)
--- NOTE | 2016-12-04 10:12 | PN ---
Progress Note (short form) - Note Progress Note: SUBJECTIVE: Patient seen and examined. Chart reviewed. Chief Complaint: Right sided lower back pain. Cough present. Denies chest pain. Denies any urinary burning. Denies constipation. OBJECTIVE: Vital Signs - 8 hr 12/04/16 06:00 Temperature 99.4 F Pulse Rate 100 H Respiratory 20 Rate Blood Pressure 149/92 Intake & Output 12/03/16 12/04/16 12/04/16 23:59 07:59 15:59 Intake Total 200 100 Balance 200 100 Weight 84.992 kg Intake: IVPB 100 Oral 200 Other: Voiding Method Toilet # Unmeasured Voids Void 2 Bowel Movement No Weight Measurement Method Standing Scale Active Medications Acetaminophen (Tylenol -) 650 mg PO Q4H PRN PRN Reason: PAIN 6-10 Stop: 12/05/16 12:52 Last Admin: 12/04/16 09:57 Dose: 650 mg Amlodipine Besylate (Norvasc -) 5 mg PO DAILY [facility] Last Admin: 12/04/16 09:56 Dose: 5 mg Aspirin (Ecotrin -) 81 mg PO DAILY [facility] Last Admin: 12/04/16 09:55 Dose: 81 mg Cholecalciferol (Vitamin D3 -) 2,000 unit PO BID [facility] Last Admin: 12/04/16 09:56 Dose: 2,000 unit Heparin Sodium (Porcine) (Heparin -) 5,000 unit SQ BID [facility] Last Admin: 12/04/16 09:56 Dose: 5,000 unit Hydrochlorothiazide (Hctz -) 25 mg PO DAILY [facility] Last Admin: 12/04/16 09:55 Dose: 25 mg Insulin Aspart (Novolog Vial Sliding Scale -) 1 vial SQ TIDAC [facility] PRN Reason: Protocol Last Admin: 12/04/16 10:14 Dose: Not Given Lidocaine (Lidoderm Patch -) 1 patch TP DAILY [facility] Last Admin: 12/04/16 09:56 Dose: 1 patch Nicotine (Nicoderm Patch -) 21 mg TD DAILY [facility] Last Admin: 12/04/16 09:56 Dose: 21 mg Oxycodone HCl (Roxicodone -) 10 mg PO Q4H PRN PRN Reason: PAIN 6-10 Last Admin: 12/04/16 09:57 Dose: 10 mg CBC, BMP 12/04/16 07:00 12/04/16 07:00 Laboratory Results - last 24 hr 12/02/16 12/03/16 12/03/16 07:40 05:21 15:42 WBC RBC Hgb Hct MCV MCHC RDW Plt Count MPV Neutrophils % Lymphocytes % Monocytes % Eosinophils % Basophils % Sodium Potassium Chloride Carbon Dioxide Anion Gap BUN Creatinine Creat Clearance w eGFR POC Glucometer 134.42039 128 Random Glucose Calcium Total Bilirubin AST ALT Alkaline Phosphatase Total Protein Albumin Crossmatch IS Only See Detail 12/04/16 12/04/16 12/04/16 05:46 07:00 07:00 WBC RBC Hgb Hct MCV MCHC RDW Plt Count MPV Neutrophils % Lymphocytes % Monocytes % Eosinophils % Basophils % Sodium 136 Potassium 3.8 Chloride 98 Carbon Dioxide 26 Anion Gap 12 BUN 13 Creatinine 1.2 H Creat Clearance w eGFR 45.52 POC Glucometer 132 Random Glucose 120 H Calcium 8.4 L Total Bilirubin 1.0 D AST 133 H D ALT 98 H D Alkaline Phosphatase 62 Total Protein 6.3 L Albumin 3.3 L Crossmatch IS Only 12/04/16 07:00 WBC 19.5 H RBC 4.20 Hgb 12.5 Hct 36.3 MCV 86.3 MCHC 34.5 RDW 13.9 Plt Count 153 MPV 8.0 Neutrophils % 81.7 D Lymphocytes % 11.7 D Monocytes % 6.1 Eosinophils % 0.1 D Basophils % 0.4 Sodium Potassium Chloride Carbon Dioxide Anion Gap BUN Creatinine Creat Clearance w eGFR POC Glucometer Random Glucose Calcium Total Bilirubin AST ALT Alkaline Phosphatase Total Protein Albumin Crossmatch IS Only PHYSICAL EXAMINATION: Constitutional: Yes: No Distress, Calm Cardiovascular: Yes: Regular Rate and Rhythm Respiratory: Yes: Diminished Gastrointestinal: Yes: Normal Bowel Sounds, Soft, Abdomen, Obese. Edema: No Neurological: Yes: WNL, Alert ...Motor Strength: WNL Psychiatric: Yes: WNL Back: Tenderness present in the lower back area. Problem List - Problems (1) Abdominal aortic aneurysm (AAA) greater than 39 mm in diameter Code(s): I71.4 - ABDOMINAL AORTIC ANEURYSM, WITHOUT RUPTURE (2) Diabetes mellitus, controlled Code(s): E11.9 - TYPE 2 DIABETES MELLITUS WITHOUT COMPLICATIONS Qualifiers: Diabetes mellitus type: type 2 Diabetes mellitus complication status: without complication (3) Hypertension Code(s): I10 - ESSENTIAL (PRIMARY) HYPERTENSION Qualifiers: Hypertension type: essential hypertension Qualified Code(s): I10 - Essential (primary) hypertension (4) Back pain Code(s): M54.9 - DORSALGIA, UNSPECIFIED Qualifiers: Back pain location: low back pain Chronicity: chronic (5) Nicotine dependence Code(s): F17.200 - NICOTINE DEPENDENCE, UNSPECIFIED, UNCOMPLICATED Qualifiers : Nicotine product type: cigarettes Substance use status: uncomplicated Qualified Code(s): F17.210 - Nicotine dependence, cigarettes, uncomplicated ASSESSMENT & PLAN: Post Op Day #2. - Continue present care. - Labs noted. - Increased WBC count as well as worsening LFTs. - Patient has low grade fever. - Monitor. - Get FUA as she is having lower back pain. - Check UA. - Chest X-Ray is negative. - Ambulate. - Incentive spirometry. - Will follow. Documentation prepared by Lolly Meraz, acting as a medical scientist for Shantanu Aleman MD.
[2016-12-04] MEDS ORDERED: INSULIN (NOVOLOG) ASPART 100 UNITS/ML 10ML VIAL ONE (15:17)
[2016-12-04 17:59] LABS: URINE APPEARANCE CLEAR; URINE BILIRUBIN NEGATIVE (NEGATIVE); URINE GLUCOSE (UA) NEGATIVE (NEGATIVE); URINE KETONE NEGATIVE (NEGATIVE); URINE NITRITE NEGATIVE (NEGATIVE); URINE UROBILINOGEN NEGATIVE E.U./dl (0.2-1.0)
[2016-12-04 18:04] LABS: URINE BLOOD 3+ (NEGATIVE); URINE LEUK ESTERASE TRACE (NEGATIVE); URINE PROTEIN 2+ (NEGATIVE)
[2016-12-04 18:07] LABS: URINE RBC 13 /hpf (0-3); URINE WBC 21 /hpf (3-5)
[2016-12-04 18:09] LABS: URINE COLOR LIGHT RED
[2016-12-05] MEDS: oxyCODONE HCL 5 MG TABLET PO PRN (01:11)
[2016-12-05] MEDS: ACETAMINOPHEN 325 MG TABLET (FP) PO PRN (01:12)
[2016-12-05] MEDS: INSULIN SLIDING SCALE (NOVOLOG) 1 VIAL SQ SCH ×2 (07:00→11:46)
[2016-12-05 08:29] VITALS: BP 153/75; PULSE 82; TEMP 98.2
[2016-12-05 09:26] LABS: BASOPHIL 0.4 % (0-2.0); EOSINOPHIL 0.4 % (0-4.5); MCH 29.7 pg (25.7-33.7); MCHC 33.9 g/dl (32.0-36.0); MEAN CELL VOLUME 87.7 fl (80-96); MEAN PLT VOLUME 8.2 fl (7.5-11.1); NEUTROPHILS 78.2 % (42.8-82.8); PLATELET COUNT 149 K/MM3 (134-434); RDW 14.1 % (11.6-15.6); WHITE BLOOD COUNT 16.6 K/mm3 (4.0-10.0)
[2016-12-05 09:44] LABS: BILIRUBIN,TOTAL 0.8 mg/dL (0.2-1.0); CALCIUM 8.8 mg/dL (8.5-10.1); CREATININE 1.2 mg/dL (0.55-1.02); TOT PROT 6.4 g/dl (6.4-8.2)
[2016-12-05] MEDS: ASPIRIN COATED 81 MG TABLET.EC PO SCH (10:25)
[2016-12-05] MEDS: amLODIPine BESYLATE 5 MG TABLET (FP) PO SCH (10:25)
[2016-12-05] MEDS: HYDROCHLOROTHIAZIDE 25 MG TABLET (FP) PO SCH (10:25)
[2016-12-05] MEDS: CHOLECALCIFEROL (VITAMIN D3) 1,000 UNIT TABLET (FP) PO SCH (10:25)
[2016-12-05] MEDS ORDERED: SULFAMETHOXAZOLE/TRIMETHOPRIM 800MG/160MG D.S. TABLET PO SCH (10:30)
[2016-12-05] MEDS: NICOTINE 21 MG/24 HOURS TOPICAL PATCH TD SCH (10:38)
[2016-12-05] MEDS: LIDOCAINE 5% TOPICAL PATCH TP SCH (10:38)
[2016-12-05] MEDS: HEPARIN NA (PORCINE) 5,000 UNITS/ML 1ML VIAL SQ SCH (10:39)
--- NOTE | 2016-12-05 11:40 | PN ---
Progress Note (short form) - Note Progress Note: POD 3 Complains of lower back pain, right side Afebrile Abd soft Ext warm, pulses intact Labs WBC lower - 16K. LFT improving Imp: S/p EVAR. Chronic back pain. Probable SIRS from surgery. Possible UTI by UA. Plan: PO Bactrim Increase activity. Home today. Problem List - Problems (1) Abdominal aortic aneurysm (AAA) greater than 39 mm in diameter Code(s): I71.4 - ABDOMINAL AORTIC ANEURYSM, WITHOUT RUPTURE (2) Diabetes mellitus, controlled Code(s): E11.9 - TYPE 2 DIABETES MELLITUS WITHOUT COMPLICATIONS Qualifiers: Diabetes mellitus type: type 2 Diabetes mellitus complication status: without complication
--- NOTE | 2016-12-05 11:46 | DS ---
Physical Examination Vital Signs: Vital Signs Temperature 98.2 F 12/05/16 08:00 Pulse Rate 82 12/05/16 08:00 Respiratory Rate 20 12/05/16 08:00 Blood Pressure 153/75 12/05/16 08:00 O2 Sat by Pulse Oximetry (%) 96 12/05/16 09:00 Findings/Remarks: 61 year old female with 6.5 cm AAA. Endovascular repair on 12/02/16. Post-op complaint of lower back pain. Elevated WBC and LFT without fever. SIRS suspected. Slight hematuria on UA. Discharge on PO Bactrim for presumed UTI. Follow up in office 1 week. Labs: CBC, BMP 12/05/16 07:50 12/05/16 07:50 Discharge Summary Reason For Visit: AAA Current Active Problems Abdominal aortic aneurysm (AAA) greater than 39 mm in diameter (Acute) Back pain (Acute) Diabetes mellitus, controlled (Acute) Hypertension (Acute) Nicotine dependence (Acute) Condition: Fair - Instructions Diet, Activity, Other Instructions: Regular diet May shower Referrals: Dorian Willett MD [Staff Physician] - 1 Week Disposition: HOME - Home Medications Comprehensive Discharge Medication List: Ambulatory Orders Amlodipine Besylate [Norvasc] 5 mg PO DAILY 12/23/12 Aspirin Coated [Ecotrin -] 81 mg PO ASDIR 10/07/16 Cholecalciferol (Vitamin D3) [Vitamin D3] 2,000 unit PO BID 10/07/16 Hydrochlorothiazide 25 mg PO ASDIR 10/07/16 Naproxen [Naprosyn -] 500 mg PO PRN PRN 10/07/16 [place]-3/Dha/Epa/Fish Oil [[place] 3 500 Softgel] 1,000 mg PO HS 10/07/16 Oxycodone HCl/Acetaminophen [Percocet 5-325 mg Tablet] 1 - 2 tab PO Q4H #20 tablet MDD 5 10/07/16 Sitagliptin Phos/Metformin HCl [Janumet Xr 50-500 mg Tablet] 1 each PO DAILY 01/18 Vitamin E Acetate [Vitamin E] 400 unit PO DAILY 10/07/16 Sulfamethoxazole/Trimethoprim [Bactrim Ds Tablet] 1 each PO BID #10 tablet 12/05
--- NOTE | 2016-12-05 12:18 | PN ---
Progress Note (short form) - Note Progress Note: Seen by [facility]- will be dc home today Has right sided back pain Vital Signs - 24 hr 12/04/16 12/04/16 12/04/16 13:22 17:00 20:00 Temperature 99.1 F 97.9 F 98.2 F Pulse Rate 86 91 H 88 Respiratory 17 20 20 Rate Blood Pressure 122/67 124/70 O2 Sat by Pulse 98 Oximetry (%) 12/05/16 12/05/16 12/05/16 06:00 08:00 09:00 Temperature 98 F 98.2 F Pulse Rate 92 H 82 Respiratory 22 20 Rate Blood Pressure 140/78 153/75 O2 Sat by Pulse 96 Oximetry (%) Current Medications Generic Name Dose Route Start Last Admin Trade Name Freq PRN Reason Stop Dose Admin Acetaminophen 650 mg 12/03/16 18:38 12/05/16 01:12 Tylenol - PO 12/05/16 12:52 650 mg Q4H PRN Administration PAIN 6-10 Amlodipine Besylate 5 mg 12/04/16 10:00 12/05/16 10:25 Norvasc - PO 5 mg DAILY RENAN Administration Aspirin 81 mg 12/04/16 10:00 12/05/16 10:25 Ecotrin - PO 81 mg DAILY RENAN Administration Cholecalciferol 2,000 unit 12/03/16 22:00 12/05/16 10:25 Vitamin D3 - PO 2,000 unit BID RENAN Administration Heparin Sodium (Porcine) 5,000 unit 12/03/16 22:00 12/05/16 10:39 Heparin - SQ 5,000 unit BID RENAN Administration Hydrochlorothiazide 25 mg 12/04/16 10:00 12/05/16 10:25 Hctz - PO 25 mg DAILY ERNAN Administration Insulin Aspart 1 vial 12/04/16 07:00 12/05/16 11:46 Novolog Vial Sliding Scale - SQ Not Given [facility] Protocol Lidocaine 1 patch 12/03/16 20:30 12/05/16 10:38 Lidoderm Patch - TP 1 patch DAILY RENAN Administration Nicotine 21 mg 12/03/16 11:00 12/05/16 10:38 Nicoderm Patch - TD 21 mg DAILY RENAN Administration Oxycodone HCl 10 mg 12/03/16 18:38 12/05/16 01:11 Roxicodone - PO 10 mg Q4H PRN Administration PAIN 6-10 Trimethoprim/Sulfamethoxazole 1 each 12/05/16 10:30 12/05/16 10:38 Bactrim Ds - PO 1 each BID RENAN Administration Laboratory Results - last 24 hr 12/03/16 12/04/16 12/04/16 11:37 15:24 16:00 WBC RBC Hgb Hct MCV MCHC RDW Plt Count MPV Neutrophils % Lymphocytes % Monocytes % Eosinophils % Basophils % Sodium Potassium Chloride Carbon Dioxide Anion Gap BUN Creatinine Creat Clearance w eGFR POC Glucometer [phone] Random Glucose Calcium Total Bilirubin AST ALT Alkaline Phosphatase Total Protein Albumin Urine Color Light red Urine Appearance Clear Urine pH 6.0 Ur Specific [place] 1.015 Urine Protein 2+ H Urine Glucose (UA) Negative Urine Ketones Negative Urine Blood 3+ H Urine Nitrite Negative Urine Bilirubin Negative Urine Urobilinogen Negative Ur Leukocyte Esterase Trace H Urine RBC 13 Urine WBC 21 Ur Epithelial Cells Moderate 12/04/16 12/05/16 12/05/16 22:47 07:50 07:50 WBC 16.6 H RBC 4.31 Hgb 12.8 Hct 37.8 MCV 87.7 MCHC 33.9 RDW 14.1 Plt Count 149 MPV 8.2 Neutrophils % 78.2 Lymphocytes % 15.8 D Monocytes % 5.2 Eosinophils % 0.4 D Basophils % 0.4 Sodium 135 L Potassium 3.4 L Chloride 95 L Carbon Dioxide 30 Anion Gap 10 BUN 14 Creatinine 1.2 H Creat Clearance w eGFR 45.52 POC Glucometer 118 Random Glucose 178 H D Calcium 8.8 Total Bilirubin 0.8 AST 82 H D ALT 85 H Alkaline Phosphatase 90 D Total Protein 6.4 Albumin 3.0 L Urine Color Urine Appearance Urine pH Ur Specific [place] Urine Protein Urine Glucose (UA) Urine Ketones Urine Blood Urine Nitrite Urine Bilirubin Urine Urobilinogen Ur Leukocyte Esterase Urine RBC Urine WBC Ur Epithelial Cells 12/05/16 11:44 WBC RBC Hgb Hct MCV MCHC RDW Plt Count MPV Neutrophils % Lymphocytes % Monocytes % Eosinophils % Basophils % Sodium Potassium Chloride Carbon Dioxide Anion Gap BUN Creatinine Creat Clearance w eGFR POC Glucometer 145 Random Glucose Calcium Total Bilirubin AST ALT Alkaline Phosphatase Total Protein Albumin Urine Color Urine Appearance Urine pH Ur Specific [place] Urine Protein Urine Glucose (UA) Urine Ketones Urine Blood Urine Nitrite Urine Bilirubin Urine Urobilinogen Ur Leukocyte Esterase Urine RBC Urine WBC Ur Epithelial Cells S1 S2 RRR Lungs clear Abd- soft, NT No edema Right paraspinal tenderness PLAN -- back pain -- UTI -- ?kidney stone ---> antibiotics PO Bactrim on discharge ----> encourage PO fluids ---->pain control -- follow up in office in 2 weeks Problem List - Problems (1) Abdominal aortic aneurysm (AAA) greater than 39 mm in diameter Code(s): I71.4 - ABDOMINAL AORTIC ANEURYSM, WITHOUT RUPTURE (2) Diabetes mellitus, controlled Code(s): E11.9 - TYPE 2 DIABETES MELLITUS WITHOUT COMPLICATIONS Qualifiers: Diabetes mellitus type: type 2 Diabetes mellitus complication status: without complication (3) Hypertension Code(s): I10 - ESSENTIAL (PRIMARY) HYPERTENSION Qualifiers: Hypertension type: essential hypertension Qualified Code(s): I10 - Essential (primary) hypertension (4) Back pain Code(s): M54.9 - DORSALGIA, UNSPECIFIED Qualifiers: Back pain location: low back pain Chronicity: chronic (5) Nicotine dependence Code(s): F17.200 - NICOTINE DEPENDENCE, UNSPECIFIED, UNCOMPLICATED Qualifiers : Nicotine product type: cigarettes Substance use status: uncomplicated Qualified Code(s): F17.210 - Nicotine dependence, cigarettes, uncomplicated
== END 2016-12-05 12:32 | disposition home or self-care (01) | DRG 110 ==
LOC: JSAMEDAYSX 05:03 → JICU 14:26 → J6S 12-03 12:59
PROVIDERS: ADMIT Surgery; ATTEND Surgery
PROC: 03HY32Z Insertion of Monitoring Device into Upper Artery, Percutaneous Approach (ICD-10-PCS; 2016-12-02)
PROC: 4A133B1 Monitoring of Arterial Pressure, Peripheral, Percutaneous Approach (ICD-10-PCS; 2016-12-02)
PROC: 04V03DZ Restriction of Abdominal Aorta with Intraluminal Device, Percutaneous Approach (ICD-10-PCS; principal; 2016-12-02 08:00)
DX: I71.4 Abdominal aortic aneurysm, without rupture (principal); N39.0 Urinary tract infection, site not specified; F17.210 Nicotine dependence, cigarettes, uncomplicated; E11.9 Type 2 diabetes mellitus without complications; E66.9 Obesity, unspecified; E78.5 Hyperlipidemia, unspecified; G47.33 Obstructive sleep apnea (adult) (pediatric); Z79.84 Long term (current) use of oral hypoglycemic drugs; M54.9 Dorsalgia, unspecified; Z68.34 Body mass index [BMI] 34.0-34.9, adult; R31.9 Hematuria, unspecified
CPT/HCPCS: 36415; 71010-TC; 74000-TC; 76001-TC; 80048; 80053; 81003; 81015; 82550; 83735; 84100; 84484; 85025; 85027; 86850; 86900; 86901; 86922; 94010; 94760; 97116-GP; 97162-PG; J1644